=== PATIENT | female | born 1965 | race Caucasian/White ===

== ENCOUNTER 2021-03-09 12:43 | Emergency (ER) | payer OTHER ==
[~2021-03-09] VITALS: Ht 175.3 cm; Wt 68.0 kg
[2021-03-09] MEDS ORDERED: HORMONES (13:07)
== END 2021-03-09 13:52 | disposition home or self-care (01) ==
LOC: ER 12:43
DX: T18.198A Other foreign object in esophagus causing other injury, initial encounter (principal); Z88.0 Allergy status to penicillin; W45.8XXA Other foreign body or object entering through skin, initial encounter
CPT/HCPCS: 96372; 99283-25; A9270; J1610